=== PATIENT | male | born 1985 | race Two or more races ===

== ENCOUNTER 2023-06-13 15:38 | Emergency (ER) | payer SELFPAY ==
[~2023-06-13] VITALS: Ht 177.8 cm; Wt 87.0 kg
[2023-06-13 15:51] VITALS: BP 160/88; PULSE 94; RESP 18; TEMP 98.1; O2SAT 96
== END 2023-06-13 20:14 | disposition left against medical advice (07) ==
LOC: ER 15:38
DX: S00.83XA Contusion of other part of head, initial encounter (principal); Y08.89XA Assault by other specified means, initial encounter; Y93.89 Activity, other specified; Y92.89 Other specified places as the place of occurrence of the external cause; Y99.8 Other external cause status
CPT/HCPCS: 99284